=== PATIENT | female | born 1940 | race Caucasian/White ===

== ENCOUNTER → 2018-02-06 | Outpatient (CLI) | payer BC | LOC: M WHC 09:52 | DX: Z12.31 Encounter for screening mammogram for malignant neoplasm of breast (principal) | CPT/HCPCS: 77067 ==

== ENCOUNTER → 2019-02-26 | Outpatient (CLI) | payer BC ==
--- NOTE | 2019-02-26 14:30 | REPMRS ---
Patient History The patient states she has not had a clinical breast exam in over a year. Patient is postmenopausal and has history of squamous cells skin cancer. Family history of ovarian cancer under age 50 in mother, pancreatic cancer at age 74 in brother. Benign excisional biopsy of the left breast, 2004. No Hormone Replacement Therapy Digital Woman Screen Mammo: February 26, 2019 - Exam #: [id number] Bilateral CC and MLO view(s) were taken. Technologist: Tracy Milner, Technologist Prior study comparison: February 06, 2018, digital woman screen mammo performed at [facility]. September 24, 2016, digital woman screen mammo performed at [facility]. August 30, 2015, digital woman screen mammo performed at [facility]. FINDINGS: The breast tissue is heterogeneously dense. This may lower the sensitivity of mammography. There is a moderate amount of heterogeneously dense fibroglandular tissue which is fairly symmetric. There is no interval development of dominant mass, architectural distortion, or clustered microcalcification typical of malignancy. There has been no change in the appearance of the mammogram from the prior studies. 3-D tomosynthesis shows no additional findings. Assessment: BI-RADS/ACR category 1 mammogram. Negative Mammogram. Recommendation Routine screening mammogram of both breasts in 1 year (for women over age 40). This patient's Lifetime Breast Cancer RIsk is estimated at 1.7 %. This mammogram was interpreted with the aid of an FDA-approved computer-aided dectection system. Electronically Signed By: Kp Arthur MD 02/26/19 8809
--- NOTE | 2019-03-01 10:11 | DEXA ---
AP SPINE L1 - L4 0.973 -1.8 0.1 LT FEMUR TOTAL 0.814 -1.5 0.5 LT NECK 0.811 -1.6 0.5 RT FEMUR TOTAL 0.815 -1.5 0.5 RT NECK 0.825 -1.5 0.6 TOTAL BODY TOTAL OTHER COMMENTS: There is low bone density of the spine and hips. The density of the spine has decreased 13.3% since the initial exam on 05/20/2000. The spine density has decreased 5.5% since the most recent exam on 09/24/2016. The density of the left hip has decreased 16.5% since the initial exam on 05/20/2000. The density of the left hip has decreased 4.0% since the most recent exam on 09/24/2016. The density of the right hip has decreased 17.1% since the initial exam on 05/20/2000. The density of the right hip has decreased 2.9% since the most recent exam in 09/24/2016. FOLLOW-UP: Recommendation for the next bone density exam: 2 years. BARBARA
== END ==
LOC: M WHC 08:32
PROVIDERS: ATTEND Family Medicine
DX: Z12.31 Encounter for screening mammogram for malignant neoplasm of breast (principal); M81.0 Age-related osteoporosis without current pathological fracture; Z78.0 Asymptomatic menopausal state; Z85.828 Personal history of other malignant neoplasm of skin; Z80.41 Family history of malignant neoplasm of ovary; Z80.0 Family history of malignant neoplasm of digestive organs

== ENCOUNTER → 2020-03-24 | Outpatient (CLI) | payer BC ==
--- NOTE | 2020-03-24 12:24 | REPMRS ---
Patient History Family history of ovarian cancer under age 50 in mother, pancreatic cancer at age 74 in brother. Benign excisional biopsy of the left breast, 2004. No Hormone Replacement Therapy 3D TOMOSYNTHESIS WAS PERFORMED. The [facility] lifetime risk for breast cancer is 1.4%. RAFAL Schultz. Digital Woman Screen Mammo: March 24, 2020 - Exam #: [id number] Bilateral CC and MLO view(s) were taken. Technologist: Kelly Edmonds, Technologist Prior study comparison: February 26, 2019, bilateral digital woman screen mammo performed at [facility]. February 06, 2018, digital woman screen mammo performed at [facility]. FINDINGS: The breast tissue is heterogeneously dense. This may lower the sensitivity of mammography. There has been no change in the appearance of the mammogram from the prior studies. There is a moderate amount of residual fibroglandular tissue which is fairly symmetric. There is no interval development of dominant mass, areas of architectural distortion, or clustered microcalcification typical of malignancy. Assessment: BI-RADS/ACR category 1 mammogram. Negative Mammogram. Recommendation Routine screening mammogram in 1 year (for women over age 40). This mammogram was interpreted with the aid of an FDA-approved computer-aided dectection system. Electronically Signed By: Gary London MD 03/24/20 [id number]
== END ==
LOC: M WHC 08:25
PROVIDERS: ATTEND Family Medicine
DX: Z12.31 Encounter for screening mammogram for malignant neoplasm of breast (principal); Z80.41 Family history of malignant neoplasm of ovary; Z80.0 Family history of malignant neoplasm of digestive organs

== ENCOUNTER → 2020-04-25 | Outpatient (REF) | payer BC | LOC: M LAB REF 09:01 | PROVIDERS: ATTEND Physician Assistant | DX: L57.0 Actinic keratosis (principal) ==

== ENCOUNTER 2021-04-17 18:06 | Emergency (ER) | payer BC ==
[~2021-04-17] VITALS: Ht 162.6 cm; Wt 66.7 kg
[2021-04-17] MEDS ORDERED: ATOR1TAB19 (18:39)
[2021-04-17] MEDS ORDERED: ZOLP5TAB (18:39)
[2021-04-17] MEDS ORDERED: AMLO2.5T3 (18:39)
--- NOTE | 2021-04-17 22:48 | REP ---
INDICATION: please read xrays on disc. COMPARISON: None. TECHNIQUE: AP, lateral, oblique views FINDINGS: Examination is limited by technique. Dislocation at the 2nd and 3rd proximal interphalangeal joints is suggested. Small fracture cannot be excluded. IMPRESSION: Limited by technique and positioning. Dislocation at the 2nd and 3rd proximal interphalangeal joints suspected. <Electronically signed by Solomon Fishman > 04/17/21 [id number]
[2021-04-17] MEDS ORDERED: LIDOCAINE 2% MDV 20ML VIAL SC ONE (23:10)
[2021-04-17 23:59] VITALS: BP 165/71
--- NOTE | 2021-04-18 00:14 | CR.PDOC ---
General Date of Consultation: Apr 17, 2021 Consultation REASON FOR CONSULTATION/CHIEF COMPLAINT: Left second and third proximal interphalangeal joint dislocation HISTORY OF PRESENT ILLNESS: Earlier today, the patient was getting out of the pool and stubbed her toes or had some sort of slip or fall or injury which resulted in pain to the second and third toes. Patient was seen in the emergency room and diagnosed with second and third toe proximal interphalangeal joint dislocations. The TAVO Carcamo successfully performed a closed reduction of the third digit but had asked me to look at the x-rays and see if I could help her with reduction of the second toe interphalangeal joint as there was still some overlap seen of the proximal and middle phalanx. ALLERGIES: Please see below. HOME MEDICATIONS: Please see below. PAST MEDICAL HISTORY: Noncontributory PAST SURGICAL HISTORY: Noncontributory FAMILY HISTORY: Noncontributory SOCIAL HISTORY: Noncontributory REVIEW OF SYSTEMS: The patient is only complaining of left foot pain and discomfort PHYSICAL EXAMINATION: VITAL SIGNS: Please see below. GENERAL APPEARANCE: Patient appears to be alert and oriented and in no significant distress. The patient had had ring blocks performed so sensation was not intact to the second and third toes. There did appear to be good capillary refill of these toes to the left foot. X-ray: X-ray imaging was independently reviewed by myself. These images demonstrated the previous dislocations which appeared to be dorsally dislocated. It was difficult to tell if there is any associated fracture but there were certainly no large fragments. Post reduction imaging was also reviewed. This demonstrated the reduction of the third interphalangeal joint proximally. There is still some overlap of the second. Procedure: Closed reduction of the second toe proximal interphalangeal joint of left foot Using traction and gentle manipulation as well as some flexion and extension I manipulated the second toe and felt a little pop. It appeared to be reduced X-ray: Additional x-ray imaging was ordered and reviewed. This demonstrated the recovery of the joint space between the proximal and mid phalanx of the second toe. This appeared to show the reduction of the 2 dislocations of the second and third proximal interphalangeal joints LABORATORY DATA: Please see below. ASSESSMENT/PLAN: 1. The emergency room PA will place the patient in dorsal volar phalanges splints and priscila tape as appropriate. The patient will follow up in the office within 1 week for repeat x-ray imaging and reevaluation. If there is any evidence of loss of reduction then there may be consideration for referral to a rooms director or otherwise. She will also be nonweightbearing. The patient will be discharged through the emergency room with appropriate instructions and follow-up will be arranged through our orthopedic office. Vital Signs/I&O Vital Signs Date Time Temp Pulse Resp B/P (MAP) Pulse Ox O2 Delivery O2 Flow Rate FiO2 04/17/21 23:59 97.2 58 18 165/71 (102) 98 Room Air Allergies Coded Allergies: No Known Allergies (Unverified , 04/17/21) Home Medications Miscellaneous Medications Amlodipine Besylate (Amlodipine Besylate) 2.5 Mg Tablet, (Reported) Atorvastatin Calcium (Atorvastatin Calcium) 10 Mg Tablet, (Reported) Zolpidem Tartrate (Zolpidem Tartrate) 5 Mg Tablet, (Reported) SAADIA MALHOTRA MD Apr 18, 2021 00:14
--- NOTE | 2021-04-18 01:27 | REPVR ---
PROCEDURE INFORMATION: Exam: XR Left Toe(s) Exam date and time: 04/17/2021 11:31 PM Age: 80 years old Clinical indication: Pain; Toes; Left; Additional info: Post reduction TECHNIQUE: Imaging protocol: XR Left toes. Views: Minimum 2 views. COMPARISON: No relevant prior studies available. FINDINGS: Bones/joints: Normal osseous alignment. No acute fracture. No osseous lesion. Joint spaces are maintained. Soft tissues: Normal. IMPRESSION: Anatomic alignment of the osseous structures with no evidence of subluxation, fracture or asymmetric soft tissue injury Electronically signed by: Franco Hua On 04/18/2021 01:26:16 AM
== END 2021-04-18 00:07 | disposition home or self-care (01) ==
LOC: M ED 18:06
DX: S93.115A Dislocation of interphalangeal joint of left lesser toe(s), initial encounter (principal); Y92.009 Unspecified place in unspecified non-institutional (private) residence as the place of occurrence of the external cause; Y93.9 Activity, unspecified; Y99.9 Unspecified external cause status; E78.5 Hyperlipidemia, unspecified; I10 Essential (primary) hypertension

== ENCOUNTER → 2021-04-25 | Outpatient (CLI) | payer BC ==
[~2021-04-25] MED LIST: AMLO2.5T3; ATOR1TAB19; ZOLP5TAB
--- NOTE | 2021-04-26 00:26 | REP ---
INDICATION: PAIN. COMPARISON: 04/17/2021 TECHNIQUE: AP, lateral, bilateral oblique views of the left toes FINDINGS: Satisfactory reduction at 2nd and 3rd proximal interphalangeal joints again noted. No definite acute fracture dislocation IMPRESSION: Atraumatic changes. Satisfactory reduction again noted. No obvious acute fracture. <Electronically signed by Solomon Fishman > 04/26/21 0022
== END ==
LOC: M SOG 14:52
PROVIDERS: ATTEND Orthopaedic Surgery Adult Reconstructive Orthopaedic Surgery
DX: M79.672 Pain in left foot (principal)

== ENCOUNTER → 2021-04-27 | Outpatient (CLI) | payer BC ==
--- NOTE | 2021-04-27 08:44 | REPMRS ---
Patient History The patient states she has not had a clinical breast exam in over a year. Family history of ovarian cancer under age 50 in mother, pancreatic cancer at age 74 in brother. Benign excisional biopsy of the left breast, 2004. No Hormone Replacement Therapy Patient states no breast complaints today. Patient has signed MRS History Sheet. Digital Woman Screen Mammo: April 27, 2021 - Exam #: [id number] Bilateral CC and MLO view(s) were taken. Technologist: Aileen Wheeler, Technologist Prior study comparison: March 24, 2020, bilateral digital woman screen mammo performed at [facility]. February 26, 2019, bilateral digital woman screen mammo performed at [facility]. FINDINGS: The breast tissue is heterogeneously dense. This may lower the sensitivity of mammography. Screening. Digital screening (2D) mammography was performed bilaterally in the CC and MLO projections. Additionally, breast tomosynthesis (3D mammography) was performed bilaterally in the CC and MLO projections. Todays exam was compared to the prior exam/exams. By history, the patient has no complaints of a palpable breast abnormality or other significant breast complaints. The breasts are unchanged in size and shape.Once again, dense heterogenous fibroglandular elements are seen bilaterally in a stable appearing pattern but to such a degree that the sensitivity of the mammogram in detecting cancer is decreased. There are no maxime-soft tissue densities or spiculated masses. There is no internal architectural distortion. Once again, stable benign appearing calcifications are seen.There are no suspicious maxiem-calcific clusters. Skin thickening or nipple retraction is not present. IMPRESSION: BI-RADS Category 2- Benign Findings. There is no evidence of malignant alteration of the breasts. Followup examination recommended in one year. The Volpara volumetric breast density category is C, the breasts are heterogenously dense which may obscure small masses. This mammogram was read with the assistance of [employer],an FDA approved computer aided detection system for mammography. The lifetime Tyrer-Cuzick score is 1.1 % Due to the density of the breasts or Tyrer Cuzick score of 20% or greater, MRI/whole breast screening ultrasound is warranted. Negative x-ray reports should not delay surgical consultation if a dominant or clinically suspicious mass is present. Not all breast cancers can be identified by mammography. Therefore, we recommend that you continue to perform regular breast self-examination and physical examination and then promptly contact your physician of any concerns or changes. Adenosis and dense breasts may obscure an underlying neoplasm. Assessment: BI-RADS/ACR category 2 mammogram. Benign Findings. Recommendation Routine screening mammogram of both breasts in 1 year. Electronically Signed By: Demario Neely DO 04/27/21 0808
== END ==
LOC: M WHC 08:01
PROVIDERS: ATTEND Family Medicine
DX: Z12.31 Encounter for screening mammogram for malignant neoplasm of breast (principal)

== ENCOUNTER → 2021-05-08 | Outpatient (CLI) | payer BC ==
--- NOTE | 2021-05-08 11:28 | REP ---
INDICATION: UNSPEFICIED SUBLUXATION OF LT TOES 2N AND 3RD. COMPARISON: Comparison left forefoot series is from April 25, 2021. Comparison foot series from 17 April 2021 showed dislocation of the PIP joints of digits 2 and 3.. TECHNIQUE: Four views of the left forefoot are provided. FINDINGS: Four views of the left forefoot show normal alignment of the PIP and D IP joints of the toes. There is mild soft tissue swelling adjacent to the PIP joint of the 2nd toe. There is a chip fracture fragment in the medial soft tissues of the 3rd toe proximal to the PIP joint. This is unchanged. There is a tiny way for thin chip fracture fragment suspected in the soft tissues medial to the PIP joint of the 4th toe as well. Chip fracture of the middle phalanx of the 2nd toe at the PIP joint is difficult to exclude. IMPRESSION: Normal alignment. Chip fracture fragments suspected as above <Electronically signed by Kp Arthur > 05/08/21 1127
== END ==
LOC: M SOG 08:04
PROVIDERS: ATTEND Orthopaedic Surgery Adult Reconstructive Orthopaedic Surgery
DX: S93.102D Unspecified subluxation of left toe(s), subsequent encounter (principal)

== ENCOUNTER → 2021-06-24 | Outpatient (CLI) | payer BC ==
[~2021-06-24] MED LIST changes: +VITAD400CA FT
--- NOTE | 2021-06-24 16:18 | REPVR ---
PROCEDURE INFORMATION: Exam: MR Head Without Contrast Exam date and time: 06/24/2021 1:42 PM Age: 80 years old Clinical indication: Headaches TECHNIQUE: Imaging protocol: MR of the head without contrast. COMPARISON: No relevant prior studies available. FINDINGS: Brain: There is high signal abnormality in the periventricular white matter and centrum semiovale, best seen on the flair images. These changes are nonspecific but consistent with chronic small vessel ischemic disease which is common in older patients. Foci of gliosis, chronic infarcts, and/or demyelination cannot be excluded. Cerebral ventricles: Normal. No ventriculomegaly. Bones/joints: Unremarkable. Paranasal sinuses: Normal as visualized. No acute sinusitis. Mastoid air cells: Normal as visualized. No mastoid effusion. Orbital cavity: Unremarkable. Soft tissues: Unremarkable. IMPRESSION: There is high signal abnormality in the periventricular white matter and centrum semiovale, best seen on the flair images. These changes are nonspecific but consistent with chronic small vessel ischemic disease which is common in older patients. Foci of gliosis, chronic infarcts, and/or demyelination cannot be excluded. No acute infarct is identified. Electronically signed by: Zeke Fernandez On 06/24/2021 16:18:02 PM
== END ==
LOC: M RAD 12:31
PROVIDERS: ATTEND Family Medicine
DX: G44.89 Other headache syndrome (principal)

== ENCOUNTER → 2021-08-09 | Outpatient (CLI) | payer BC ==
[~2021-08-09] MED LIST changes: +ECOT81TA5 PO; +HYDR500C PO; +IRON325T2 PO
[2021-08-09 17:11] LABS: INR 1.05; PROTHROMBIN TIME 14.1 SECONDS (12.7-14.5)
[2021-08-09 17:12] LABS: PARTIAL THROMBOPLASTIN TIME 32.6 SECONDS (25.9-37.0)
== END ==
LOC: M LAB 16:11
PROVIDERS: ATTEND Internal Medicine Medical Oncology
DX: D69.6 Thrombocytopenia, unspecified (principal)

== ENCOUNTER → 2021-08-17 | Outpatient (CLI) | payer BC ==
--- NOTE | 2021-08-17 10:21 | REP ---
INDICATION: EVAL SPLENOMAGALY. COMPARISON: None. TECHNIQUE: Real-time sonographic evaluation of the left upper quadrant attention spleen FINDINGS: The spleen measures 8.1 x 5.5 x 7.9 cm. The volumetric index calculation is 352. This is within the normal range. IMPRESSION: No evidence of splenomegaly. <Electronically signed by Demario Neely > 08/17/21 1010
== END ==
LOC: M RAD 09:20
PROVIDERS: ATTEND Internal Medicine Medical Oncology
DX: D47.3 Essential (hemorrhagic) thrombocythemia (principal)

== ENCOUNTER → 2021-08-27 | Outpatient (CLI) | payer BC ==
[~2021-08-27] MED LIST changes: +LIDOCAINE 1% MDV 20ML VIAL As Ordered ONE; +LORA-674 PO
[2021-08-27 10:31] LABS: BASO # 0.1 10^3/uL (0.0-0.2); EOS # 0.2 10^3/uL (0.0-0.5); EOS % 3.5 % (0.0-3.0); HEMATOCRIT 44.1 % (36.0-47.0); HEMOGLOBIN 14.6 g/dl (12.0-15.5); LYMPH # 1.8 10^3/uL (1.5-5.0); LYMPH % 30.7 % (24.0-44.0); MEAN CORPUSCULAR HEMOGLOBIN 29.9 pg (27.0-33.0); MEAN CORPUSCULAR HGB CONC 33.1 g/dl (32.0-36.5); MEAN CORPUSCULAR VOLUME 90.2 fl (80.0-96.0); MONO # 0.6 10^3/uL (0.0-0.8); MONO % 10.1 % (2.0-8.0); NEUTROPHILS # 3.2 10^3/uL (1.5-8.5); NEUTROPHILS % 54.5 % (36.0-66.0); PLATELET COUNT, AUTOMATED 396 10^3/uL (150-450); RED BLOOD COUNT 4.89 10^6/uL (4.00-5.40); WHITE BLOOD COUNT 5.9 10^3/uL (4.0-10.0)
[2021-08-27 11:45] VITALS: BP 129/61
--- NOTE | 2021-08-28 08:17 | REP ---
INDICATION: ANEMIA, THROMBOCYTOPENIA. COMPARISON: None. TECHNIQUE: The procedure was procedure performed under the direct supervision of Dr. Snell. The risks and benefits of the procedure were explained to the patient and informed consent was obtained. The right iliac bone was localized using CT guidance. The skin was prepped and draped in a sterile fashion. 6 mL of 1% lidocaine was used as local anesthetic. Using CT guidance an 11 gauge bone marrow biopsy system was inserted. 10 mL of marrow fluid was withdrawn. One core biopsy sample was then obtained. Estimated blood loss: Less than 1 mL The patient tolerated the procedure well and there were no immediate complications. After the appropriate amount to monitored convalescence the patient was discharged from the department. FINDINGS: None IMPRESSION: CT-guided right iliac bone marrow biopsy. <Electronically signed by Ashwin Barboza > 08/27/21 1424 <Electronically signed by Michael Snell > 08/28/21 0825
== END ==
LOC: M IRPRO 09:43
PROVIDERS: ATTEND Internal Medicine Medical Oncology
DX: D69.6 Thrombocytopenia, unspecified (principal)

== ENCOUNTER → 2022-06-20 | Outpatient (CLI) | payer BC ==
[~2022-06-20] MED LIST changes: -AMLO2.5T3; +AMLO2.5T3 PO; -ATOR1TAB19; +ATOR1TAB19 PO; -LIDOCAINE 1% MDV 20ML VIAL As Ordered ONE; -VITAD400CA FT; +VITAD400CA PO; -ZOLP5TAB; +ZOLP5TAB PO
== END ==
LOC: M WHC 10:58
PROVIDERS: ATTEND Family Medicine
DX: Z12.31 Encounter for screening mammogram for malignant neoplasm of breast (principal); M81.0 Age-related osteoporosis without current pathological fracture

== ENCOUNTER → 2023-02-07 | Outpatient (CLI) | payer BC | LOC: M WHC 13:08 | PROVIDERS: ATTEND Physician Assistant | DX: I65.29 Occlusion and stenosis of unspecified carotid artery (principal); E04.1 Nontoxic single thyroid nodule ==

== ENCOUNTER → 2024-10-19 | Outpatient (CLI) | payer MEDICARE, BC ==
[~2024-10-19] MED LIST changes: +LORA-1041 PO; -LORA-674 PO; +OMEP-173
== END ==
LOC: M WHC 09:03
PROVIDERS: ATTEND Family Medicine
DX: Z12.31 Encounter for screening mammogram for malignant neoplasm of breast (principal); R92.333 Mammographic heterogeneous density, bilateral breasts

== ENCOUNTER → 2025-06-10 | Outpatient (CLI) | payer MEDICARE, BC ==
[~2025-06-10] MED LIST changes: -HYDR500C PO; +HYDR500C20 PO; +HYDR500C3 PO
== END ==
LOC: M WHC 09:07
PROVIDERS: ATTEND Internal Medicine Hematology & Oncology
DX: R10.9 Unspecified abdominal pain (principal); K76.89 Other specified diseases of liver; D47.3 Essential (hemorrhagic) thrombocythemia; N20.0 Calculus of kidney

== ENCOUNTER → 2025-06-27 | Outpatient (CLI) | payer MEDICARE, BC ==
[~2025-06-27] MED LIST changes: +ISOVUE-370 76% 100 ML VIAL As Ordered ONE; -ZOLP5TAB PO; +ZOLP5TAB9 PO
== END ==
LOC: M RAD 09:48
PROVIDERS: ATTEND Internal Medicine Medical Oncology
DX: D47.1 Chronic myeloproliferative disease (principal); I70.0 Atherosclerosis of aorta; R93.422 Abnormal radiologic findings on diagnostic imaging of left kidney; K42.9 Umbilical hernia without obstruction or gangrene
CPT/HCPCS: 74170; Q9967